=== PATIENT | male | born 1960 | race Caucasian/White ===

== ENCOUNTER 2016-08-17 20:35 | Emergency (ER) | payer MEDICAID ==
[~2016-08-17] VITALS: Ht 175.3 cm; Wt 136.1 kg
[~2016-08-17 20:35] MED LIST: FERR140T PO; GLU500 PO; LEVO500T20 PO; SYN75 PO; TRAM50TA2 PO; VITRON-C PO
[2016-08-17 20:41] VITALS: BP_SYST 142
--- NOTE | 2016-08-17 20:41 | NUR ---
Patient triaged and placed in waiting room. VSS and patient appears in no acute distress at this time. Accompanied by self, awaiting available bed, and MD notified of need for MSE.
--- NOTE | 2016-08-17 21:40 | NUR ---
ER at bedside examining patient.
[2016-08-17] MEDS ORDERED: CEPHALEXIN 500 MG CAPSULE PO ONE (21:45)
[2016-08-17] MEDS ORDERED: IBUPROFEN 600 MG TABLET PO ONE (21:45)
[2016-08-17] MEDS ORDERED: LIDOCAINE/EPI 1% 1:100000 20 ML VIAL IJ ONE (21:45)
--- NOTE | 2016-08-17 21:50 | NUR ---
Pt awake alert oriented x 4 clear speech. Pt stated that bilster on his back. Warm to touch, redness at the site. No actue distress noted at the time. will conintue to monitor
== END 2016-08-17 23:35 | disposition home or self-care (01) ==
LOC: SED 20:35
DX: L02.212 Cutaneous abscess of back [any part, except buttock and flank] (principal); I10 Essential (primary) hypertension; E11.9 Type 2 diabetes mellitus without complications; Z88.6 Allergy status to analgesic agent; Z86.79 Personal history of other diseases of the circulatory system; Z88.5 Allergy status to narcotic agent; Z85.038 Personal history of other malignant neoplasm of large intestine
CPT/HCPCS: 87070-TC; 87075-TC; 99284

== ENCOUNTER 2016-08-19 19:12 | Emergency (ER) | payer MEDICAID ==
[~2016-08-19] VITALS: Ht 172.7 cm; Wt 138.3 kg
[2016-08-19 19:39] VITALS: BP_SYST 155
--- NOTE | 2016-08-19 19:40 | NUR ---
Pt triaged and placed in waiting room
--- NOTE | 2016-08-19 19:55 | NUR ---
Pt placed in hallway , report given to Erickson ARIZA
--- NOTE | 2016-08-19 19:55 | NUR ---
Leti hernandes in [facility] - 08/19/16 at 2156 by [email or web address] Pt courtney in [facility] , report given to Erickson ARIZA
--- NOTE | 2016-08-19 19:58 | NUR ---
Pt ambulated to hallway, steady gait. Pt came to ED to have wound check. Pt had wound to upper left shoulder, states he previously had packing inserted. Pt denies any pain or new symtoms. Pt respirations even and unlabored. Will continue to monitor.
--- NOTE | 2016-08-19 19:59 | NUR ---
MD Beltran examinign pt in the [facility]
[2016-08-19 20:25] VITALS: BP_SYST 152
--- NOTE | 2016-08-19 20:25 | NUR ---
Patient given written and verbal discharge instructions and verbalizes understanding. ER MD Beltran discussed with patient the results and treatment provided.Patient in stable condition. ID arm band removed. No RX given. Patient educated on pain management and to follow up with PMD. Pain Scale 0/10. Opportunity for questions provided and answered.
== END 2016-08-19 20:25 | disposition home or self-care (01) ==
LOC: SED 19:12
DX: Z48.01 Encounter for change or removal of surgical wound dressing (principal); I10 Essential (primary) hypertension; E11.9 Type 2 diabetes mellitus without complications; E78.00 Pure hypercholesterolemia, unspecified; Z86.79 Personal history of other diseases of the circulatory system; Z85.038 Personal history of other malignant neoplasm of large intestine; Z88.6 Allergy status to analgesic agent; Z88.5 Allergy status to narcotic agent
CPT/HCPCS: 99282

== ENCOUNTER 2018-06-04 07:34 | Day surgery (SDC) | payer OTHER ==
[~2018-06-04] VITALS: Ht 172.7 cm; Wt 136.1 kg
[~2018-06-04 07:34] MED LIST changes: +CEFAZOLIN 1 GM IVPB PREMIX 50 ML IV ONE
[2018-06-04] MEDS ORDERED: fentaNYL CITRATE/PF 100 MCG/2 ML AMP IVP PRN ×2 (10:45)
[2018-06-04] MEDS ORDERED: ONDANSETRON HCL 4 MG/2 ML VIAL IVP PRN ×2 (10:45→12:45)
[2018-06-04] MEDS ORDERED: KETOROLAC TROMETHAMINE 30 MG VIAL IVP PRN (10:45)
[2018-06-04] MEDS ORDERED: ROCURONIUM BROMIDE 10 MG/ML (ZEMURON) IV ONE (11:07)
[2018-06-04] MEDS ORDERED: NEOSTIGMINE METHYLSULFATE 1 MG/ML, 10 ML VIAL IVP ONE (11:07)
[2018-06-04] MEDS ORDERED: SEVOFLURANE 15 MIN GAS INH ONE (11:07)
[2018-06-04] MEDS ORDERED: NS 1000 ML IV.SOLN IV ONE (11:07)
[2018-06-04] MEDS ORDERED: PROPOFOL 200MG/ 20ML VIAL (DIPRIVAN) IV ONE (11:07)
[2018-06-04] MEDS ORDERED: GLYCOPYRROLATE 0.2 MG/ML VIAL IJ ONE (11:07)
[2018-06-04] MEDS ORDERED: BUPIVACAINE LIPOSOME/PF 266 MG/20 ML VIAL INFIL ONE (11:07)
[2018-06-04] MEDS ORDERED: PHENYLEPHRINE HCL 10 MG/ML VIAL (NEOSYNEPHRINE) IV ONE (11:07)
[2018-06-04] MEDS ORDERED: fentaNYL CITRATE/PF 100 MCG/2 ML AMP IVP ONE (11:07)
[2018-06-04] MEDS ORDERED: BUPIVACAINE /PF 0.25% 30 ML VIAL INJ ONE (11:07)
[2018-06-04] MEDS ORDERED: MIDAZOLAM HCL 5 MG/5 ML VIAL IVP ONE (11:07)
[2018-06-04] MEDS ORDERED: KETOROLAC TROMETHAMINE 30 MG VIAL IVP ONE (11:07)
[2018-06-04] MEDS ORDERED: LR 1,000 ML IV.SOLN IV ONE (11:07)
[2018-06-04] MEDS ORDERED: POLYMYXIN 500,000/BACIT.10,000 UNITS in NS IRR 1 L IR ONE (11:29)
[2018-06-04] MEDS ORDERED: ONDANSETRON HCL 4 MG/2 ML VIAL ONE (13:08)
[2018-06-04] MEDS ORDERED: fentaNYL CITRATE/PF 100 MCG/2 ML AMP ONE (13:08)
[2018-06-04 16:30] VITALS: BP_SYST 116
[2018-06-04] MEDS: CEFAZOLIN 1 GM IVPB PREMIX 50 ML IV SCH ×2 (16:40→23:25)
[2018-06-04] MEDS: D5/0.45 NS 1,000 ML IV SCH (16:44)
[2018-06-04] MEDS: HYDROmorphone 1 MG INJ. 1 MG/ML AMPUL IVP PRN (18:00)
[2018-06-04 20:00] VITALS: BP_SYST 137
[2018-06-04] MEDS ORDERED: traMADol HCL HCL 50 MG TABLET (ULTRAM) PO PRN (20:15)
[2018-06-04] MEDS ORDERED: FAMOTIDINE PF 20 MG/2 ML VIAL IVP SCH (21:00)
[2018-06-05 00:24] VITALS: BP_SYST 124
[2018-06-05] MEDS: D5/0.45 NS 1,000 ML IV SCH (03:41)
[2018-06-05] MEDS ORDERED: LEVOTHYROXINE SODIUM 0.075 MG TABLET PO SCH (07:00)
[2018-06-05 08:00] VITALS: BP_SYST 133
[2018-06-05] MEDS ORDERED: metFORMIN HCL 500 MG TABLET PO SCH (08:00)
[2018-06-05] MEDS ORDERED: FERROUS SULFATE 325 MG TABLET.DR PO SCH (08:30)
[2018-06-05] MEDS ORDERED: ENOXAPARIN SODIUM 30 MG/0.3 ML SYRINGE SUBCUT SCH (09:00)
[2018-06-05] MEDS: HYDROmorphone 1 MG INJ. 1 MG/ML AMPUL IVP PRN (10:12)
[2018-06-05 10:53] VITALS: BP_SYST 130
[2018-06-05 12:32] VITALS: BP_SYST 130
== END 2018-06-05 13:27 | disposition home or self-care (01) ==
LOC: SDS 07:34 → SMU 07:37 → SDS 06-05 13:27
PROVIDERS: ATTEND Colon & Rectal Surgery
DX: K43.0 Incisional hernia with obstruction, without gangrene (principal); Z98.890 Other specified postprocedural states; Z79.899 Other long term (current) drug therapy; Z88.8 Allergy status to other drugs, medicaments and biological substances; E66.01 Morbid (severe) obesity due to excess calories; I10 Essential (primary) hypertension; E11.40 Type 2 diabetes mellitus with diabetic neuropathy, unspecified; Z85.038 Personal history of other malignant neoplasm of large intestine; E03.9 Hypothyroidism, unspecified; Z80.0 Family history of malignant neoplasm of digestive organs; Z84.1 Family history of disorders of kidney and ureter; Z68.42 Body mass index [BMI] 45.0-49.9, adult
CPT/HCPCS: 49561; 49568; 82948; 82962; 88302; C1781; C9290; J0690; J1170 ×2; J1650; J1885; J2250; J2370; J2405; J2704; J2710; J3010; J3490 ×3; J7030; J7120

== ENCOUNTER 2021-01-03 18:02 | Inpatient (IN) | payer OTHER ==
[~2021-01-03] VITALS: Ht 172.7 cm; Wt 134.7 kg
[~2021-01-03 18:02] MED LIST changes: -CEFAZOLIN 1 GM IVPB PREMIX 50 ML IV ONE; -FERR140T PO; +FERR140T2 PO
[2021-01-03 18:15] VITALS: BP_SYST 108
--- NOTE | 2021-01-03 18:25 | NUR ---
Patient to ER bed 7 to gown for evaluation. Side rails up. Report given to EV ARIZA.
--- NOTE | 2021-01-03 18:30 | NUR ---
# 18 gauge angiocath placed to LAC. Use of asceptic technique. Opsite placed over site. Blood return noted. Blood for lab drawn from site. Flushed with 10 cc of normal saline. No evidence of infiltration noted. Patient tolerated well.
--- NOTE | 2021-01-03 18:35 | NUR ---
PT CAME IN FROM HOME C/O LEFT SIDED FLANK PAIN STARTING LAST NIGHT WITH FEVER, N/V, DIARRHEA. PT PRESENTS DIAPHORETIC, MOANING IN PAIN. STATES HE HAS BEEN ABLE TO VOID WITH PAIN. UNABLE TO HOLD AND FOOD OR FLUIDS SINCE LAST NIGHT. TACHYCARDIC UPON ARRIVAL 150S
--- NOTE | 2021-01-03 18:40 | NUR ---
ER DR. PAUL AT THE BEDSIDE EXAMINING PT
[2021-01-03] MEDS ORDERED: KETOROLAC TROMETHAMINE 30 MG VIAL IVP ONE (18:45)
[2021-01-03] MEDS ORDERED: NACL 0.9% 1,000 ML IV ONE ×2 (18:45→22:15)
[2021-01-03 18:59] LABS: BASOPHILS % (AUTO) 0.2 % (0.0-2.0); EOSINOPHILS % (AUTO) 0.4 % (0.0-4.0); HEMATOCRIT 43.4 % (36-54); LYMPHOCYTES # (AUTO) 0.4 K/uL (1.0-5.5); LYMPHOCYTES % (AUTO) 6.6 % (20.5-51.5); MEAN CORPUSCULAR HEMOGLOBIN 33 pg (27-31); MEAN CORPUSCULAR HGB CONC 34 % (32-36); MEAN CORPUSCULAR VOLUME 95 fL (79.0-98.0); MONOCYTES # (AUTO) 0.1 K/uL (0.0-1.0); NEUTROPHILS # (AUTO) 5.2 K/uL (1.8-7.7); NEUTROPHILS % (AUTO) 91.8 % (40.0-70.0); PLATELET COUNT (AUTO) 181 K/uL (130-430); RED BLOOD CELL COUNT(AUTO) 4.57 MIL/uL (4.2-6.2); RED CELL DISTRIBUTION WIDTH 13.4 % (9.0-15.0); WHITE BLOOD COUNT (AUTO) 5.6 K/uL (4.8-10.8)
--- NOTE | 2021-01-03 19:05 | NUR ---
Patient transported to radiology via GURNEY, accompanied by STAFF.
[2021-01-03 19:12] LABS: CALCIUM 9.8 mg/dL (8.4-11.0); CREATININE 1.75 mg/dL (0.55-1.30)
[2021-01-03 19:18] LABS: ALBUMIN 4.1 g/dL (3.4-4.8); TOTAL BILIRUBIN 1.2 mg/dL (0.0-1.0)
--- NOTE | 2021-01-03 19:22 | NUR ---
REPORT GIVEN TO TO SHAH FOR CONTINUING CARE
--- NOTE | 2021-01-03 19:30 | NUR ---
Patient at resting in bed, no complaints at this time. Will continue to monitor.
[2021-01-03] MEDS ORDERED: MORPHINE 4 MG INJ. 4 MG/ML VIAL IVP ONE (20:15)
[2021-01-03 21:04] LABS: BILIRUBIN,URINE NEGATIVE (NEGATIVE); BLOOD, URINE 2+ (NEGATIVE); CLARITY/URINE SL CLOUDY (CLEAR); COLOR,URINE YELLOW (YELLOW); GLUCOSE,URINE NEGATIVE (NEGATIVE); KETONES,URINE 1+ (NEGATIVE); LEUKOCYTE ESTERASE ,URINE 1+ (NEGATIVE); NITRITE, URINE POSITIVE (NEGATIVE); PH,URINE 5.5 (5.0-8.0); PROTEIN URINE 1+ (NEGATIVE); UROBILINOGEN,URINE 0.2 (0.2-1.0)
--- NOTE | 2021-01-03 21:11 | NUR ---
Dr. Beltran speaking with Dr. Lozada for admission. Per Dr. Lozada, she will be inputing admit orders herself.
[2021-01-03 21:32] LABS: BACTERIA,URINE MANY /HPF (None Seen); MUCUS,URINE None Seen /LPF (None Seen); URINE AMORPHOUS URATE 2+ /HPF (None Seen); WBC,URINE 50-80 /HPF (0-3)
--- NOTE | 2021-01-03 21:46 | NUR ---
Waiting MD to input admit orders to admit to TELE. Patient resting in bed. Will continue to monitor.
[2021-01-03] MEDS ORDERED: MORPHINE 2 MG/ML INJ. SYRINGE IVP PRN (22:00)
[2021-01-03] MEDS ORDERED: ALBUTEROL SULFATE 0.083% 2.5 MG/3 ML VIAL.NEB INH PRN (22:00)
[2021-01-03] MEDS ORDERED: LORazepam 2 MG/ML VIAL IVP PRN (22:00)
[2021-01-03 22:05] VITALS: BP_SYST 120
[2021-01-03] MEDS ORDERED: PIPERACILLIN/TAZOBACTAM 3.375 GM/VIAL (ZOSYN) IV ONE (22:10)
[2021-01-03] MEDS: PIPERACILLIN/TAZO 3.375/DEX-IS 50 ML IV SCH (22:13)
[2021-01-03] MEDS: NACL 0.9% 1,000 ML IV SCH (22:14)
[2021-01-03] MEDS ORDERED: TAMSULOSIN HCL 0.4 MG CAP PO ONE (22:30)
[2021-01-03] MEDS ORDERED: traMADol HCL HCL 50 MG TABLET (ULTRAM) PO SCH (22:30)
--- NOTE | 2021-01-03 23:00 | NUR ---
TELE TRANSFER Patient transferred to TELE room 101B. All belongings sent with patient. VSS. Report given bedside.
[2021-01-03] MEDS: MORPHINE 4 MG INJ. 4 MG/ML VIAL IVP PRN (23:16)
[2021-01-03 23:23] VITALS: BP_SYST 105
[2021-01-03] MEDS ORDERED: DICL75TA5 PO (23:41)
[2021-01-03] MEDS ORDERED: PREG75CA PO (23:41)
[2021-01-03] MEDS ORDERED: DULA1.5P SQ (23:44)
--- NOTE | 2021-01-03 23:45 | NUR ---
NOTES: repost given by mike Asencio. Admitted fro abdominal pain Dx Kidney stone. pt. sleeping when checked, was given IV Morphine. placed on airplane tube builder and shows sinus tach. call light within reach.
[2021-01-04] MEDS: NACL 0.9% 1,000 ML IV SCH ×4 (00:20→18:35)
[2021-01-04] MEDS ORDERED: PIPERACILLIN/TAZOBACTAM 3.375 GM/VIAL (ZOSYN) IV ONE (00:30)
--- NOTE | 2021-01-04 00:30 | NUR ---
NOTES: IVF started @ 150 cc/hr and IV antibiotic started. pt. went back to sleep. call light at bedside. reminded pt. not to get up and verbalized understanding.
[2021-01-04] MEDS: PIPERACILLIN/TAZO 3.375/DEX-IS 50 ML IV SCH ×4 (00:36→17:28)
--- NOTE | 2021-01-04 05:22 | NUR ---
NOTES: pt. called, having chills, no pain. checked temp 96.8. warm blanket given, will recheck temp in 30 min. IVF infusing well. call light within reach.
--- NOTE | 2021-01-04 06:10 | NUR ---
NOTES: rechecked temp 98.1. noted HR went up on 140-150's pt. asleep. due IV antibiotic, started and mainIV kept @ 150 cc/hr. for further care and assistance.
--- NOTE | 2021-01-04 06:15 | NUR ---
NOTES: Dr Kim called and updated on pt. condition, aware of the chills and WBC. no further order.
--- NOTE | 2021-01-04 06:26 | NUR ---
CONSULTATION PAGED REASON FOR CONSULTATION:KIDNEY STONE WAS CONSULT CALLED?Y PERSON WHO WAS NOTIFIED:LEFT VOICEMAIL WITH CONSULTING PHYSICIAN:OSBALDO ESPOSITO DEVELOPMENT OFFICER SPECIALTY:UROLOGY DEVELOPMENT OFFICER PHONE NUMBER:[phone] REQUESTING PHYSICIAN:KAM KUMARI SOPHIA
--- NOTE | 2021-01-04 06:45 | NUR ---
NOTES: pt. temp rechecked 100.7 HR 150-[address] >julia about it. Tylenol ES ordered and cooling measures done. c/o abdominal pain, IV Morphine will be given. BS checked 248. for further care and assist. endorsed to day shift.
--- NOTE | 2021-01-04 06:50 | NUR ---
ATTENDING MD DR HUMPHREY WAS CALLED, RE: PT HAS HIGH HR IN THE 170'S AND ELEVATED TEMPERATURE OF > 100 DEG F.
[2021-01-04] MEDS: MORPHINE 4 MG INJ. 4 MG/ML VIAL IVP PRN (06:55)
[2021-01-04] MEDS ORDERED: LEVOTHYROXINE SODIUM 0.075 MG TABLET PO SCH (07:00)
[2021-01-04] MEDS ORDERED: ACETAMINOPHEN 500 MG TABLET PO ONE (07:00)
[2021-01-04 07:04] LABS: BASOPHILS % (AUTO) 0.1 % (0.0-2.0); HEMATOCRIT 41.1 % (36-54); HEMOGLOBIN 13.8 g/dL (14.0-18.0); LYMPHOCYTES # (AUTO) 0.3 K/uL (1.0-5.5); LYMPHOCYTES % (AUTO) 2.9 % (20.5-51.5); MEAN CORPUSCULAR HEMOGLOBIN 33 pg (27-31); MEAN CORPUSCULAR HGB CONC 34 % (32-36); MEAN CORPUSCULAR VOLUME 97 fL (79.0-98.0); MONOCYTES # (AUTO) 0.5 K/uL (0.0-1.0); MONOCYTES % (AUTO) 5.2 % (1.7-9.3); NEUTROPHILS # (AUTO) 8.9 K/uL (1.8-7.7); NEUTROPHILS % (AUTO) 91.8 % (40.0-70.0); PLATELET COUNT (AUTO) 132 K/uL (130-430); RED BLOOD CELL COUNT(AUTO) 4.25 MIL/uL (4.2-6.2); RED CELL DISTRIBUTION WIDTH 13.4 % (9.0-15.0); WHITE BLOOD COUNT (AUTO) 9.7 K/uL (4.8-10.8)
[2021-01-04] MEDS ORDERED: ACETAMINOPHEN 500 MG TABLET ONE (07:06)
--- NOTE | 2021-01-04 07:12 | NUR ---
Nutrition Update Akin Scale 16 noted. Pt admitted for Sepsis, Tachycardia, Kidney stone Diet: [facility] [place] BMI: 45.2 kg/m2 RD to follow per nutrition care standards.
[2021-01-04] MEDS: INSULIN REGULAR, HUMAN 100 UNITS/ML, 10 ML VIAL (humuLIN R) SUBCUT PRN ×4 (07:21→21:23)
[2021-01-04 07:38] LABS: ALBUMIN 3.5 g/dL (3.4-4.8); CREATININE 2.1 mg/dL (0.55-1.30); POTASSIUM 4.9 mmol/L (3.5-5.1); TOTAL BILIRUBIN 1.1 mg/dL (0.0-1.0)
--- NOTE | 2021-01-04 08:20 | NUR ---
DR TSE CAME AND SEE THE PATIENT.
[2021-01-04 08:32] VITALS: BP_SYST 104
[2021-01-04 12:35] VITALS: BP_SYST 127
[2021-01-04] MEDS: ONDANSETRON HCL 4 MG/2 ML VIAL IVP PRN ×2 (13:01→21:18)
--- NOTE | 2021-01-04 15:55 | NUR ---
ATTENDING MD DR COMER WAS CALLED, RE: BC RESULTS (GRAM NEG RODS IN 4 BOTTLES). SPOKE TO .
[2021-01-04 15:58] VITALS: BP_SYST 124
--- NOTE | 2021-01-04 16:09 | NUR ---
DR COMER CALL BACK MADE AWARE OF GRAM NEGATIVE RODS ON BLOOD CULTURE. NO ORDER MADE.
[2021-01-04] MEDS: KETOROLAC TROMETHAMINE 15 MG VIAL IVP PRN (17:32)
[2021-01-04] MEDS ORDERED: LEVOFLOXACIN IN DEXTROSE 5 % 100 ML IV ONE (17:59)
[2021-01-04 18:10] VITALS: BP_SYST 123
[2021-01-04 20:00] VITALS: BP_SYST 128
[2021-01-05] VITALS: BP_SYST 118
[2021-01-05] MEDS: NACL 0.9% 1,000 ML IV SCH ×3 (00:35→14:00)
[2021-01-05] MEDS: PIPERACILLIN/TAZO 3.375/DEX-IS 50 ML IV SCH ×5 (00:35→21:19)
[2021-01-05] MEDS: LEVOTHYROXINE SODIUM 0.075 MG TABLET PO SCH (06:21)
[2021-01-05] MEDS: INSULIN REGULAR, HUMAN 100 UNITS/ML, 10 ML VIAL (humuLIN R) SUBCUT PRN (06:26)
[2021-01-05 07:00] VITALS: BP_SYST 120
--- NOTE | 2021-01-05 10:32 | NUR ---
CONSULTATION PAGED/CALLED Reason for Consultation: POSITIVE TROP Person Who was Notified: PATRICIA Consulting Physician: CHANTAL Door Manager Specialty: CARDIO Ordering Physician: SOULEYMANE
[2021-01-05 10:45] LABS: BASOPHILS % (AUTO) 0.3 % (0.0-2.0); EOSINOPHILS % (AUTO) 0.1 % (0.0-4.0); HEMATOCRIT 34.9 % (36-54); HEMOGLOBIN 11.9 g/dL (14.0-18.0); LYMPHOCYTES # (AUTO) 0.5 K/uL (1.0-5.5); LYMPHOCYTES % (AUTO) 8.4 % (20.5-51.5); MEAN CORPUSCULAR HEMOGLOBIN 32 pg (27-31); MEAN CORPUSCULAR HGB CONC 34 % (32-36); MEAN CORPUSCULAR VOLUME 95 fL (79.0-98.0); MONOCYTES # (AUTO) 0.7 K/uL (0.0-1.0); MONOCYTES % (AUTO) 11.9 % (1.7-9.3); NEUTROPHILS # (AUTO) 4.8 K/uL (1.8-7.7); NEUTROPHILS % (AUTO) 79.3 % (40.0-70.0); PLATELET COUNT (AUTO) 93 K/uL (130-430); RED BLOOD CELL COUNT(AUTO) 3.69 MIL/uL (4.2-6.2); RED CELL DISTRIBUTION WIDTH 13.4 % (9.0-15.0); WHITE BLOOD COUNT (AUTO) 6.1 K/uL (4.8-10.8)
[2021-01-05] MEDS: KETOROLAC TROMETHAMINE 15 MG VIAL IVP PRN (10:52)
[2021-01-05 10:54] LABS: CALCIUM 8.1 mg/dL (8.4-11.0); CREATININE 1.16 mg/dL (0.55-1.30); POTASSIUM 3.9 mmol/L (3.5-5.1)
--- NOTE | 2021-01-05 10:54 | NUR ---
med time one with toradol for a strong pounding headache 10 out 10 result pending med teaching given comfort and safety maintained pt was up drinking orange juice no abnormality noted
[2021-01-05 11:03] LABS: ALBUMIN 2.6 g/dL (3.4-4.8); TOTAL BILIRUBIN 0.9 mg/dL (0.0-1.0)
[2021-01-05 12:18] VITALS: BP_SYST 140
--- NOTE | 2021-01-05 12:28 | NUR ---
accu check 208mg/dl but pt was eating already
--- NOTE | 2021-01-05 12:33 | NUR ---
Dietitian Recommendations *Recommend: CCHO 2gm Na diet. Please see Nutritional Assessment for details. SARATH JOSHUA
[2021-01-05 16:13] VITALS: BP_SYST 131
[2021-01-05] MEDS: ONDANSETRON HCL 4 MG/2 ML VIAL IVP PRN (17:52)
[2021-01-05] MEDS: MORPHINE 4 MG INJ. 4 MG/ML VIAL IVP PRN (17:54)
[2021-01-05] MEDS ORDERED: LEVOFLOXACIN 250 MG/D5W 50 ML IV SCH (18:00)
--- NOTE | 2021-01-05 18:39 | NUR ---
was med time one with zofran and morphine for feeling nauseated accu ck was 200mg/dl but refused coverage because he stated he didn't want to eat his dinner also stated he had a headache rating 10 out of 10 both meds were effective per patient
[2021-01-05 20:00] VITALS: BP_SYST 133
[2021-01-06] VITALS: BP_SYST 128
--- NOTE | 2021-01-06 02:07 | NUR ---
Patient in bed. No acute distress noted. No complaint of pain or discomfort. Will continue to monitor.
[2021-01-06] MEDS: NACL 0.9% 1,000 ML IV SCH (03:21)
[2021-01-06] MEDS: LEVOTHYROXINE SODIUM 0.075 MG TABLET PO SCH (06:43)
[2021-01-06] MEDS: PIPERACILLIN/TAZO 3.375/DEX-IS 50 ML IV SCH ×2 (06:43→12:00)
[2021-01-06 06:54] LABS: BASOPHILS % (AUTO) 0.2 % (0.0-2.0); EOSINOPHILS % (AUTO) 0.3 % (0.0-4.0); HEMATOCRIT 36.2 % (36-54); HEMOGLOBIN 12.4 g/dL (14.0-18.0); LYMPHOCYTES # (AUTO) 0.5 K/uL (1.0-5.5); LYMPHOCYTES % (AUTO) 8.9 % (20.5-51.5); MEAN CORPUSCULAR HEMOGLOBIN 32 pg (27-31); MEAN CORPUSCULAR HGB CONC 34 % (32-36); MEAN CORPUSCULAR VOLUME 94 fL (79.0-98.0); MONOCYTES # (AUTO) 0.7 K/uL (0.0-1.0); MONOCYTES % (AUTO) 11.5 % (1.7-9.3); NEUTROPHILS # (AUTO) 4.8 K/uL (1.8-7.7); NEUTROPHILS % (AUTO) 79.1 % (40.0-70.0); PLATELET COUNT (AUTO) 113 K/uL (130-430); RED BLOOD CELL COUNT(AUTO) 3.84 MIL/uL (4.2-6.2); RED CELL DISTRIBUTION WIDTH 13.1 % (9.0-15.0)
[2021-01-06 06:58] LABS: ALBUMIN 2.6 g/dL (3.4-4.8); CALCIUM 8.4 mg/dL (8.4-11.0); CREATININE 0.9 mg/dL (0.55-1.30); POTASSIUM 3.5 mmol/L (3.5-5.1); TOTAL BILIRUBIN 0.8 mg/dL (0.0-1.0)
[2021-01-06 07:00] VITALS: BP_SYST 141
[2021-01-06 08:00] VITALS: BP_SYST 141
--- NOTE | 2021-01-06 08:00 | NUR ---
NURSE REPORT REPORT OBTAINED FROM NIGHT NURSE SHRAVAN AT 0730 AND THIS NURSE ASSUMED CARE OF PATIENT. VSS. AFEB. NO C/O PAIN OR DISCOMFORT. BG THIS AM- 212, TO BE GIVEN 4 UNITS REGULAR INSULIN. PATIENT NEEDS IV STARTED BUT ALREADY ATTEMPTED 4 IV STICK.
[2021-01-06] MEDS: INSULIN REGULAR, HUMAN 100 UNITS/ML, 10 ML VIAL (humuLIN R) SUBCUT PRN ×4 (10:08→20:26)
[2021-01-06 12:00] VITALS: BP_SYST 136; BP_SYST 137
[2021-01-06 16:00] VITALS: BP_SYST 136
[2021-01-06] MEDS ORDERED: LEVO500T89 PO (16:31)
--- NOTE | 2021-01-06 19:30 | NUR ---
Opening note Received report from day shift RN. Pt is awake lying in bed. Fall and safety precautions are in place with bed in lowest position and call light within reach. No needs at this time. Will continue to monitor.
--- NOTE | 2021-01-06 19:55 | NUR ---
Spoke with Dr Parks regarding pt and family not being comfortable to D/C home. Stated will see patient in AM. New orders received, will carry out
[2021-01-06 20:00] VITALS: BP_SYST 125
[2021-01-06] MEDS ORDERED: ACETAMINOPHEN 325 MG TABLET PO ONE (21:15)
--- NOTE | 2021-01-06 21:44 | NUR ---
PAGED DR. COMER I SPOKE WITH OFELIA EXCHANGE
[2021-01-07] VITALS: BP_SYST 142
[2021-01-07] MEDS: INSULIN REGULAR, HUMAN 100 UNITS/ML, 10 ML VIAL (humuLIN R) SUBCUT PRN (06:36)
[2021-01-07] MEDS: LEVOTHYROXINE SODIUM 0.075 MG TABLET PO SCH (07:19)
--- NOTE | 2021-01-07 07:20 | NUR ---
closing note patient resting in bed. afebrile. no s/s of acute distress. safety precautions maintained. will endorse to day shift RN.
[2021-01-07 08:00] VITALS: BP_SYST 127
[2021-01-07] MEDS ORDERED: levoFLOXacin 500 MG TABLET PO SCH (10:00)
[2021-01-07 10:45] VITALS: BP_SYST 126
== END 2021-01-07 10:55 | disposition home or self-care (01) | DRG 871 ==
LOC: SED 18:02 → STU 21:48 → SMU 01-06 12:08
PROVIDERS: ADMIT Internal Medicine Hospice and Palliative Medicine; ATTEND Internal Medicine Hospice and Palliative Medicine
DX: A41.59 Other Gram-negative sepsis (principal); I21.A1 Myocardial infarction type 2; Z68.42 Body mass index [BMI] 45.0-49.9, adult; N13.6 Pyonephrosis; N17.9 Acute kidney failure, unspecified; I10 Essential (primary) hypertension; E66.01 Morbid (severe) obesity due to excess calories; M17.0 Bilateral primary osteoarthritis of knee; E03.9 Hypothyroidism, unspecified; E78.5 Hyperlipidemia, unspecified; E11.65 Type 2 diabetes mellitus with hyperglycemia; Z20.822 Contact with and (suspected) exposure to COVID-19; I25.10 Atherosclerotic heart disease of native coronary artery without angina pectoris; Z85.038 Personal history of other malignant neoplasm of large intestine; Z83.3 Family history of diabetes mellitus; Z87.440 Personal history of urinary (tract) infections; Z88.6 Allergy status to analgesic agent; Z88.5 Allergy status to narcotic agent
CPT/HCPCS: 36415; 71045; 74400-TC; 76376; 76770; 78579; 78580-TC; 80053; 81000; 82962; 83605; 84484; 85025; 85379; 85610-TC; 85730-TC; 87040-TC; 87086; 93005; 93306; 94760; A9539; A9540; G0378; J1815; J1885; J1956; J2060; J2270; J2405; J2543; Q9967